=== PATIENT | male | born 1940 | race Caucasian/White ===

== ENCOUNTER 2019-07-25 06:36 | Inpatient (IN) | payer MEDICARE ==
[2019-07-18 14:42] LABS: BASOPHILS % (AUTO) 0.5 % (0-1); EOSINOPHILS % (AUTO) 0.7 % (0-6); LYMPHOCYTES # (AUTO) 1.2 X10'3 (1.1-4.8); LYMPHOCYTES % (AUTO) 19.8 % (21-51); MEAN CORPUSCULAR HEMOGLOBIN 33.1 PG (27.0-31.0); MEAN CORPUSCULAR HGB CONC 33.6 g/dL (33.0-36.5); MEAN CORPUSCULAR VOLUME 98.5 FL (78-98); MEAN PLATELET VOLUME 7.8 FL (7.4-10.4); MONOCYTES # (AUTO) 0.5 X10'3 (0-0.9); MONOCYTES % (AUTO) 7.9 % (2-12); NEUTROPHILS # (AUTO) 4.2 X10'3 (1.8-7.7); NEUTROPHILS % (AUTO) 71.1 % (42-75); PRE OP HEMOGLOBIN 14.1 g/dL (14.0-17.9); PRE OP PLATELET COUNT 286 X10'3 (140-440); RED BLOOD COUNT 4.26 X10'6 (4.70-6.10); RED CELL DISTRIBUTION WIDTH 12.1 % (11.5-14.5)
[2019-07-18 14:51] LABS: PRE OP INR 1.1 INR; PRE OP PROTIME 10.9 SECONDS (9.0-12.0)
[2019-07-18 14:52] LABS: ALBUMIN 3.9 G/DL (3.4-5.0); ALBUMIN/GLOBULIN RATIO 1.1 (1.1-1.5); ALKALINE PHOSPHATASE 62 IU/L (46-116); BLOOD UREA NITROGEN 14 MG/DL (7-18); BUN/CREATININE RATIO 13.5 (5.4-32.0); CALCIUM 9.2 MG/DL (8.5-10.1); CHLORIDE 107 MMOL/L (99-107); CREATININE 1.04 MG/DL (0.60-1.10); PRE OP ALT 27 U/L (30-65); PRE OP ANION GAP 6 (8-16); PRE OP AST 20 U/L (10-37); PRE OP BILIRUB, TOTAL 0.4 MG/DL (0.0-1.0); PRE OP POTASSIUM 4.3 MMOL/L (3.4-5.1); PRE OP SODIUM 144 MMOL/L (135-145); TOTAL CARBON DIOXIDE 30.9 MMOL/L (24-32); TOTAL PROTEIN 7.3 G/DL (6.4-8.2); eGFR 69 ML/MIN
[2019-07-18 14:54] LABS: PRE OP GLUCOSE 55 MG/DL (70-104)
[2019-07-25] VITALS (15 sets, daily range): BP systolic 91–173; BP diastolic 52–85
[~2019-07-25] VITALS: Ht 152.4 cm; Wt 56.2 kg
[~2019-07-25 06:36] MED LIST: ASPI-529 PO; ATOR40TA PO; CALC-1051 PO; LISI40TA4 PO; MULT-1172 PO; NORMAL SALINE IV ONE; TRANEXAMIC ACID 1 GM IN NACL,ISO-OS 100 ML IV ONE; TRANEXAMIC ACID IV ONE; VANCOMYCIN INJ 1000 MG in NORMAL SALINE 250ml IV.SOLN IV ONE; cefazolin/dext.iso 2gm/100ml 100 ML IV ONE; famotidine 10mg tablet PO ONE; ringers solution, lacted 1,000 ML IV SCH
[2019-07-25] MEDS ORDERED: NORMAL SALINE IV ONE ×2 (07:30→14:10)
[2019-07-25] MEDS ORDERED: TRANEXAMIC ACID 1 GM IN NACL,ISO-OS 100 ML IV ONE (07:30)
[2019-07-25] MEDS ORDERED: TRANEXAMIC ACID IV ONE ×2 (07:30→14:10)
[2019-07-25] MEDS ORDERED: fentaNYL/PF 50MCG/1 ML 2ML syringe ONE (08:36)
[2019-07-25] MEDS ORDERED: midazolam 2 mg/2 ml injection ONE ×2 (08:36)
[2019-07-25] MEDS ORDERED: ketorolac trometh. 30mg/ml inj. ONE (08:37)
[2019-07-25] MEDS ORDERED: ROPIVAcaine 0.5% (5mg/ml) 30ml vial ONE (08:38)
[2019-07-25] MEDS ORDERED: sevoflurane 250ml liquid IH ONE (09:05)
[2019-07-25] MEDS ORDERED: ringers solution, lacted 1,000 ML IV SCH (10:15)
[2019-07-25] MEDS ORDERED: morphine 4 MG/ML inj SYRINge IV PRN (10:15)
[2019-07-25] MEDS ORDERED: HYDROmorphone inj. 0.5 MG/0.5 ML DISP.SYRIN IV PRN ×2 (10:15→11:10)
[2019-07-25] MEDS ORDERED: ROPIVAcaine 0.2% (10 MG/5 ML) BOLUS INJECTION INTERSCALE PRN (10:15)
[2019-07-25] MEDS ORDERED: ondansetron/PF 4mg/2ml inj IV PRN ×2 (10:15→11:10)
[2019-07-25] MEDS ORDERED: ondansetron/PF 4mg/2ml inj ONE (10:24)
[2019-07-25] MEDS ORDERED: propofol inj 20 ML IV ONE (10:24)
[2019-07-25] MEDS ORDERED: LIDOcaine 1%/PF 5ML 10 MG/ML VIAL ONE (10:24)
[2019-07-25] MEDS ORDERED: dexamethasone sod phosphate 4mg/ml inj. ONE (10:24)
--- NOTE | 2019-07-25 10:59 | NUR ---
Received from OR via ORTHO BED WITH MDCHARLIE , accompanied by Anesthesiologist SIMONA and report given by Anesthesiolgist. PATIENT WITH RIGHT SHOULDER WRAP PRESENT WITH POWDER PACK. NO DRIANAGE. NERVE BLOCK SITE TO POSTERIOR LEFT NECK. DENIES PAIN. + MOVEMENT OF ALL FINGERS AND THUMB TO RIGHT UE. + RADIAL PULSE PRESENT. SCDS DONNED. Addendum: 07/25/19 at 1114 by Ian Moss RN, RN Amended: Links added.
[2019-07-25] MEDS ORDERED: acetaminophen 325mg tablet PO PRN (11:10)
[2019-07-25] MEDS ORDERED: bisacodyl 10mg suppository rectal RC PRN (11:10)
[2019-07-25] MEDS ORDERED: magnesium hydroxide 30ml (MOM) UD suspension PO PRN (11:10)
[2019-07-25] MEDS ORDERED: diphenhydrAMINE 25mg capsule PO PRN ×2 (11:10)
[2019-07-25] MEDS ORDERED: HYDROmorphone 1 mg/ml syringe IV PRN (11:10)
[2019-07-25] MEDS ORDERED: oxyCODONE IR 5mg (immed. release) tablet PO PRN (11:10)
[2019-07-25] MEDS: ROPIVAcaine 0.2%/PF PUMP/bolus 550 ML INTERSCALE SCH (11:14)
--- NOTE | 2019-07-25 11:49 | NUR ---
ALL CRITERIA FOR TRANSFER TO THE FLOOR HAS BEEN ACHIEVED. VSS. BED LOW, CALL LIGHT AND VS. SET IN PLACE. RN PRESENT TO ACCEPT CARE. PATIENT RESTING COMFORTABLY IN BED. BELONGINGS SENT WITH PATIENT. DRESSINGS BRAULIO. YARIEL NEWMAN PRESENT TO ACCEPT CARE OF PATIENT. VSS. PATIENT DRESSING CDI. Addendum: 07/25/19 at 1202 by Ian Moss RN, RN Amended: Links added.
--- NOTE | 2019-07-25 12:07 | NUR ---
Patient in room ORTHO 4014. I have received report from Thad SALDIVAR and had the opportunity to ask questions and assume patient care.
[2019-07-25] MEDS: potassium cl 20mEq in 1/2 NS 1,000 ML IV SCH ×2 (12:57→22:50)
[2019-07-25] MEDS: acetaminophen 325mg tablet PO SCH ×2 (13:52→20:00)
[2019-07-25] MEDS: ceFAZolin 1GM/D5W- ADD-VANTAGE 50 ML IV SCH ×2 (16:38→23:45)
--- NOTE | 2019-07-25 18:15 | NUR ---
Patient in room ORTHO 4014. I have received report from YARIEL Moreira and had the opportunity to ask questions and assume patient care.
--- NOTE | 2019-07-25 18:15 | NUR ---
Problems reprioritized. Patient report given, questions answered & plan of care reviewed with Misty SALDIVAR.
[2019-07-25] MEDS ORDERED: vancomycin/NS 1 GM ADD-VANTAGE 250 ML IV SCH (20:00)
[2019-07-25] MEDS ORDERED: lisinopril 20mg tablet PO SCH (21:00)
[2019-07-25] MEDS ORDERED: sennosides 8.6mg tablet PO SCH (21:00)
[2019-07-26 01:22] VITALS: BP 152/88
[2019-07-26] MEDS: oxyCODONE IR 5mg (immed. release) tablet PO PRN ×2 (01:28→07:40)
[2019-07-26 02:00] VITALS: BP 157/85
[2019-07-26] MEDS: acetaminophen 325mg tablet PO SCH ×3 (02:00→14:13)
[2019-07-26] MEDS: potassium cl 20mEq in 1/2 NS 1,000 ML IV SCH ×2 (03:07→07:40)
[2019-07-26 06:00] VITALS: BP 142/73
--- NOTE | 2019-07-26 06:41 | NUR ---
Patient in room ORTHO 4014. I have received report from Misty SALDIVAR and had the opportunity to ask questions and assume patient care.
--- NOTE | 2019-07-26 06:50 | NUR ---
Problems reprioritized. Patient report given, questions answered & plan of care reviewed with YARIEL Moreira.
[2019-07-26 07:15] LABS: BASOPHILS % (AUTO) 0.2 % (0-1); EOSINOPHILS % (AUTO) 0.1 % (0-6); HEMATOCRIT 41.4 % (42.0-52.0); HEMOGLOBIN 13.8 g/dl (14.0-17.9); LYMPHOCYTES # (AUTO) 1.6 X10'3 (1.1-4.8); LYMPHOCYTES % (AUTO) 11.8 % (21-51); MEAN CORPUSCULAR HEMOGLOBIN 32.7 PG (27.0-31.0); MEAN CORPUSCULAR HGB CONC 33.3 g/dL (33.0-36.5); MEAN CORPUSCULAR VOLUME 98.1 FL (78-98); MONOCYTES # (AUTO) 1.2 X10'3 (0-0.9); MONOCYTES % (AUTO) 8.7 % (2-12); NEUTROPHILS # (AUTO) 10.9 X10'3 (1.8-7.7); NEUTROPHILS % (AUTO) 79.2 % (42-75); PLATELET COUNT 279 X10'3 (140-440); RED BLOOD COUNT 4.22 X10'6 (4.70-6.10); RED CELL DISTRIBUTION WIDTH 12.5 % (11.5-14.5); WHITE BLOOD COUNT 13.8 X10'3 (4.5-11.0)
[2019-07-26 07:45] LABS: ANION GAP 12 (8-16); CHLORIDE 102 MMOL/L (99-107); POTASSIUM 3.7 MMOL/L (3.5-5.1); SODIUM 140 MMOL/L (135-145); TOTAL CARBON DIOXIDE 25.6 MMOL/L (24-32)
[2019-07-26] MEDS ORDERED: multivitamins, therapeutics tablet PO SCH (08:00)
[2019-07-26] MEDS ORDERED: atorvastatin 20mg tablet PO SCH (08:00)
[2019-07-26] MEDS ORDERED: calcium carbonate/vitamin D3 tablet PO SCH (08:00)
[2019-07-26] MEDS ORDERED: non-formulary drug (Aspirin (Baby Aspirin) 1 TAB) PO SCH (08:00)
[2019-07-26] MEDS ORDERED: aspirin 325mg tablet PO SCH (08:30)
[2019-07-26 10:00] VITALS: BP 131/68
[2019-07-26] MEDS: ROPIVAcaine 0.2%/PF PUMP/bolus 550 ML INTERSCALE SCH (14:14)
--- NOTE | 2019-07-26 16:42 | NUR ---
Safe discharge home with family. All personal items with patient. Educated on ONQ pump and dressing care.
[2019-07-27] MEDS ORDERED: acetaminophen 325mg tablet PO PRN (11:10)
--- NOTE | 2019-07-29 16:00 | NUR ---
Case management DC follow up: spoke to pt son, Antony Dunaway. reported pt doing well. States R hand swollen, same as when left hospital. pt verbalized understanding if swelling worsens, warm, red, painful, call Dr Carlisle, get pt back to hospital.follow up appt Dr Carlisle 08/13/2019. Advised to elevate hand to help reduce swelling. Pt son agreed to try this. Ice packs to shoulder, compliant w/after care instructions. Will call PCP/LINNEA Willson to schedule follow up. Verbalizes understanding of meds and why prescribed, pt taking as ordered, no ase noted. Denies SOB, resp distress, cp, emergent/acute general pain, NV, dizziness, STACK. pt ambulates w/o assist. verbalizes understanding of s/s that would warrant 9-/Er visit for evaluation. needs met, questions answered at DC, no further questions at this time.
== END 2019-07-26 16:40 | disposition home or self-care (01) | DRG 483 ==
LOC: PAS IN 06:36 → EDSTATUS 10:00 → ORTHO 4S 11:45
PROVIDERS: ADMIT Orthopaedic Surgery; ATTEND Orthopaedic Surgery
PROC: 0LS30ZZ Reposition Right Upper Arm Tendon, Open Approach (ICD-10-PCS; 2019-07-25)
PROC: 3E0T3BZ Introduction of Anesthetic Agent into Peripheral Nerves and Plexi, Percutaneous Approach (ICD-10-PCS; 2019-07-25)
PROC: 0RRJ00Z Replacement of Right Shoulder Joint with Reverse Ball and Socket Synthetic Substitute, Open Approach (ICD-10-PCS; principal; 2019-07-25 09:05)
DX: M19.011 Primary osteoarthritis, right shoulder (principal); D62 Acute posthemorrhagic anemia; M75.121 Complete rotator cuff tear or rupture of right shoulder, not specified as traumatic; M25.511 Pain in right shoulder; E78.5 Hyperlipidemia, unspecified; I10 Essential (primary) hypertension; M65.811 Other synovitis and tenosynovitis, right shoulder; Z87.891 Personal history of nicotine dependence; Z72.89 Other problems related to lifestyle; Z79.899 Other long term (current) drug therapy; Z79.82 Long term (current) use of aspirin
CPT/HCPCS: 36415; 80051; 80053; 82948; 85025; 85610; 85730; 87081; 88304; 97116; 97161; 97530; A4565; A4618; A7000; C1776; G0378; J0690; J1100; J1170; J1885; J2250; J2405; J2704; J2795; J3010; J3370; J3480; J7120